=== PATIENT | female | born 1935 | race Caucasian/White ===

== ENCOUNTER → 2017-10-19 | Outpatient (CLI) | payer MEDICARE ==
[2016-06-12 13:52] VITALS: BP 124/87
[~2017-10-19] MED LIST: COUMADIN5 MG; COZAAR25 MG PO; GOOD NEIGHBOR325 MG PO; HYDROCHLOROTHIA25 MG PO; LOTRISONE 0.05%1 CRE TP; PEPCID 20MG TAB20 MG; POTASSIUM CHLO10 ME2; TENORETIC 50 501 TAB
[2017-10-19 10:09] LABS: HEMATOCRIT 48.6 % (37.0-47.0); HEMOGLOBIN 16.2 g/dL (12.5-16.0); RED BLOOD COUNT 5.69 M/mm3 (4.10-5.30); RED CELL DISTRIBUTION WIDTH 13.7 % (11.5-14.5); WHITE BLOOD COUNT 5.4 K/mm3 (4.8-10.8)
[2017-10-19 10:26] LABS: ALBUMIN 4.5 g/dL (3.5-5.0); BUN/CREATININE RATIO 19.9 (6.0-26.0); CALCIUM 9.4 mg/dL (8.4-10.2); POTASSIUM 3.2 mmol/L (3.6-5.0); TOTAL BILIRUBIN 0.7 mg/dL (0.2-1.3); TOTAL PROTEIN 8.1 g/dL (6.3-8.2)
== END ==
LOC: LAB 09:55
PROVIDERS: Family Medicine
DX: I48.91 Unspecified atrial fibrillation (principal); R74.0 Nonspecific elevation of levels of transaminase and lactic acid dehydrogenase [LDH]

== ENCOUNTER 2017-10-24 13:06 | Emergency (ER) | payer MEDICARE ==
[~2017-10-24 13:06] MED LIST changes: +K-TAB20 MEQ PO; -POTASSIUM CHLO10 ME2
[2017-10-24] MEDS ORDERED: ELIQUIS2.5 MG PO (13:22)
[2017-10-24] MEDS ORDERED: ATENOLOL/CHLORT1 TA1 PO (13:22)
[2017-10-24 13:56] LABS: HEMATOCRIT 46.8 % (37.0-47.0); HEMOGLOBIN 15.5 g/dL (12.5-16.0); MEAN CELL VOLUME 86 fl (78-100); MEAN CORPUSCULAR HEMOGLOBIN 28 pg (27-31); MEAN CORPUSCULAR HGB CONC 33 g/dL (33-37); MEAN PLATELET VOLUME 10.1 fl (7.4-10.4); PLATELET COUNT 193 K/mm3 (130-400); RED BLOOD COUNT 5.46 M/mm3 (4.10-5.30); RED CELL DISTRIBUTION WIDTH 14.2 % (11.5-14.5)
[2017-10-24 14:10] LABS: ALBUMIN 3.5 g/dL (3.5-5.0); POTASSIUM 3.4 mmol/L (3.6-5.0); TOTAL BILIRUBIN 1.1 mg/dL (0.2-1.3); TOTAL PROTEIN 7.3 g/dL (6.3-8.2)
[2017-10-24 14:13] LABS: BAND 43 % (0-10); LYMPHOCYTE 5 % (20-51); MONOCYTE 14 % (3-10); NEUTROPHILS 38 % (42-75)
[2017-10-24 16:02] VITALS: BP 144/79
== END 2017-10-24 16:00 | disposition home or self-care (01) ==
LOC: ED 13:06
PROVIDERS: Family Medicine
DX: J18.9 Pneumonia, unspecified organism (principal); I48.91 Unspecified atrial fibrillation; Z79.01 Long term (current) use of anticoagulants; I10 Essential (primary) hypertension; Z91.14 Patient's other noncompliance with medication regimen
CPT/HCPCS: J7030

== ENCOUNTER 2017-10-29 10:27 | Inpatient (IN) | payer MEDICARE ==
[~2017-10-29] VITALS: Ht 162.6 cm; Wt 56.4 kg
[~2017-10-29 10:27] MED LIST changes: +ATENOLOL/CHLORT1 TA1 PO; +ELIQUIS2.5 MG PO
[2017-10-29 11:00] VITALS: BP 140/87
[2017-10-29 11:43] VITALS: BP 140/87
[2017-10-29 18:03] VITALS: BP 135/88
[2017-10-30 06:28] VITALS: BP 135/79
[2017-10-30 19:08] VITALS: BP 142/88
[2017-10-31 07:15] VITALS: BP 151/88
[2017-10-31 18:27] VITALS: BP 119/74
[2017-11-01 06:26] VITALS: BP 140/82
[2017-11-01 13:12] LABS: BUN/CREATININE RATIO 26.8 (6.0-26.0)
[2017-11-01] MEDS ORDERED: CEFDINIR300 MG PO (14:25)
[2017-11-01] MEDS ORDERED: ATENOLOL100 MG PO (14:26)
[2017-11-01] MEDS ORDERED: ZITHROMAX500 M2 PO (14:26)
[2017-11-01 15:04] VITALS: BP 144/82
== END 2017-11-01 16:15 | disposition home health service (06) | DRG 194 ==
LOC: MED/SURG 10:27
PROVIDERS: ADMIT Internal Medicine
DX: J18.9 Pneumonia, unspecified organism (principal); I47.1 Supraventricular tachycardia; I10 Essential (primary) hypertension; I48.91 Unspecified atrial fibrillation; E87.6 Hypokalemia

== ENCOUNTER → 2017-11-11 | Outpatient (CLI) | payer MEDICARE ==
[2017-11-01 15:04] VITALS: BP 144/82
[~2017-11-11] MED LIST changes: +ATENOLOL100 MG PO; +CEFDINIR300 MG PO; +ZITHROMAX500 M2 PO
[2017-11-11 12:08] LABS: HEMATOCRIT 42.4 % (37.0-47.0); HEMOGLOBIN 13.3 g/dL (12.5-16.0); MEAN CELL VOLUME 89 fl (78-100); MEAN CORPUSCULAR HEMOGLOBIN 28 pg (27-31); MEAN CORPUSCULAR HGB CONC 31 g/dL (33-37); MEAN PLATELET VOLUME 10.2 fl (7.4-10.4); PLATELET COUNT 227 K/mm3 (130-400); RED BLOOD COUNT 4.76 M/mm3 (4.10-5.30); RED CELL DISTRIBUTION WIDTH 14.4 % (11.5-14.5); WHITE BLOOD COUNT 4.7 K/mm3 (4.8-10.8)
[2017-11-11 12:19] LABS: ALBUMIN 3.5 g/dL (3.5-5.0); BUN/CREATININE RATIO 23.5 (6.0-26.0); POTASSIUM 4.3 mmol/L (3.6-5.0); TOTAL BILIRUBIN 0.3 mg/dL (0.2-1.3); TOTAL PROTEIN 7.1 g/dL (6.3-8.2)
[2017-11-11 12:25] LABS: BAND 1 % (0-10); LYMPHOCYTE 35 % (20-51); MONOCYTE 13 % (3-10); NEUTROPHILS 50 % (42-75)
== END ==
LOC: LAB 11:49
PROVIDERS: Internal Medicine
DX: J15.8 Pneumonia due to other specified bacteria (principal); I48.0 Paroxysmal atrial fibrillation; I10 Essential (primary) hypertension

== ENCOUNTER 2018-02-08 10:56 | Emergency (ER) | payer MEDICARE ==
[~2018-02-08] VITALS: Ht 162.6 cm; Wt 62.3 kg
[2018-02-08 11:41] LABS: HEMATOCRIT 44.8 % (37.0-47.0); HEMOGLOBIN 14.7 g/dL (12.5-16.0); MEAN CELL VOLUME 90 fl (78-100); MEAN CORPUSCULAR HEMOGLOBIN 29 pg (27-31); MEAN CORPUSCULAR HGB CONC 33 g/dL (33-37); MEAN PLATELET VOLUME 11.8 fl (7.4-10.4); PLATELET COUNT 144 K/mm3 (130-400); RED CELL DISTRIBUTION WIDTH 14.2 % (11.5-14.5)
[2018-02-08 11:50] LABS: PROTHROMBIN TIME 10.7 SECONDS (9.0-12.0)
[2018-02-08 11:55] LABS: ALBUMIN 3.8 g/dL (3.5-5.0); CALCIUM 9.2 mg/dL (8.4-10.2); POTASSIUM 3.9 mmol/L (3.6-5.0); TOTAL BILIRUBIN 0.2 mg/dL (0.2-1.3); TOTAL PROTEIN 7.1 g/dL (6.3-8.2)
[2018-02-08] MEDS ORDERED: ATENOLOL/CHLORT1 TA1 PO (12:11)
[2018-02-08 12:13] LABS: LYMPHOCYTE 21 % (20-51); MONOCYTE 15 % (3-10); NEUTROPHILS 47 % (42-75)
[2018-02-08 13:26] LABS: URINE APPEARANCE CLEAR; URINE BILIRUBIN NEGATIVE (NEGATIVE); URINE COLOR YELLOW; URINE GLUCOSE NEGATIVE (NEGATIVE); URINE KETONE NEGATIVE (NEGATIVE); URINE LEUKOCYTE ESTERASE NEGATIVE (NEGATIVE); URINE NITRATE NEGATIVE (NEGATIVE); URINE PROTEIN(semi-quant) NEGATIVE (NEGATIVE); URINE UROBILINOGEN NORMAL (NORMAL)
[2018-02-08 13:27] LABS: URINE BLOOD TRACE (NEGATIVE); URINE WBC 0-1 /hpf (0-3)
[2018-02-08] MEDS ORDERED: ATENOLOL25 MG PO (14:56)
[2018-02-08 15:23] VITALS: BP 138/84
== END 2018-02-08 15:15 | disposition home or self-care (01) ==
LOC: ED 10:56
PROVIDERS: Nurse Practitioner
DX: I95.1 Orthostatic hypotension (principal); R47.89 Other speech disturbances; I48.91 Unspecified atrial fibrillation; I10 Essential (primary) hypertension; Z79.01 Long term (current) use of anticoagulants; Z88.5 Allergy status to narcotic agent
CPT/HCPCS: J7030

== ENCOUNTER → 2018-06-24 | Outpatient (CLI) | payer MEDICARE ==
[~2018-06-24] MED LIST changes: +ATENOLOL25 MG PO
[2018-06-24 09:13] LABS: EOS # 0.2 (0.04-0.40); EOS % 3.6 % (1.0-5.0); HEMATOCRIT 44.9 % (37.0-47.0); LYMPH# 1.6 (1.50-4.00); MEAN CELL VOLUME 88 fl (78-100); MEAN CORPUSCULAR HEMOGLOBIN 29 pg (27-31); MEAN CORPUSCULAR HGB CONC 33 g/dL (33-37); MONO # 0.7 (0.20-0.80); NEU # 3.4 (1.40-6.50); PLATELET COUNT 188 K/mm3 (130-400); RED CELL DISTRIBUTION WIDTH 13.4 % (11.5-14.5); WHITE BLOOD COUNT 5.9 K/mm3 (4.8-10.8)
[2018-06-24 09:14] LABS: ALBUMIN 4.1 g/dL (3.5-5.0); CALCIUM 9.9 mg/dL (8.4-10.2); TOTAL BILIRUBIN 0.5 mg/dL (0.2-1.3); TOTAL PROTEIN 7.4 g/dL (6.3-8.2)
[2018-06-27 06:24] LABS: ERYTHROCYTE SEDIMENTATION RATE 6 mm/hr (0-30)
== END ==
LOC: LAB 08:42
PROVIDERS: Internal Medicine
DX: I48.91 Unspecified atrial fibrillation (principal); I10 Essential (primary) hypertension; K90.9 Intestinal malabsorption, unspecified

== ENCOUNTER 2018-07-17 11:35 | Emergency (ER) | payer MEDICARE ==
[2018-07-17 12:14] LABS: HEMATOCRIT 48.2 % (37.0-47.0); HEMOGLOBIN 16.2 g/dL (12.5-16.0); MEAN CELL VOLUME 87 fl (78-100); MEAN CORPUSCULAR HEMOGLOBIN 29 pg (27-31); MEAN CORPUSCULAR HGB CONC 34 g/dL (33-37); MEAN PLATELET VOLUME 11.4 fl (7.4-10.4); PLATELET COUNT 167 K/mm3 (130-400); RED BLOOD COUNT 5.54 M/mm3 (4.10-5.30); RED CELL DISTRIBUTION WIDTH 13.6 % (11.5-14.5); WHITE BLOOD COUNT 7.8 K/mm3 (4.8-10.8)
[2018-07-17 12:27] LABS: URINE APPEARANCE CLOUDY; URINE BILIRUBIN NEGATIVE (NEGATIVE); URINE BLOOD NEGATIVE (NEGATIVE); URINE COLOR YELLOW; URINE GLUCOSE NEGATIVE (NEGATIVE); URINE KETONE NEGATIVE (NEGATIVE); URINE LEUKOCYTE ESTERASE NEGATIVE (NEGATIVE); URINE NITRATE NEGATIVE (NEGATIVE); URINE PROTEIN(semi-quant) 1+ mg/dL (NEGATIVE); URINE UROBILINOGEN NORMAL (NORMAL)
[2018-07-17 12:28] LABS: URINE MUCUS PRESENT (NOT PRESENT); URINE WBC 0-1 /hpf (0-3)
[2018-07-17 12:30] LABS: PARTIAL THROMBOPLASTIN TIME 22.8 SECONDS (21.0-32.0); PROTHROMBIN TIME 10.6 SECONDS (9.0-12.0)
[2018-07-17 12:35] LABS: ALBUMIN 4.5 g/dL (3.5-5.0); CALCIUM 9.8 mg/dL (8.4-10.2); POTASSIUM 3.6 mmol/L (3.6-5.0); TOTAL BILIRUBIN 0.7 mg/dL (0.2-1.3); TOTAL PROTEIN 7.6 g/dL (6.3-8.2)
[2018-07-17 12:38] LABS: LYMPHOCYTE 13 % (20-51); MONOCYTE 6 % (3-10); NEUTROPHILS 81 % (42-75)
[2018-07-17] MEDS ORDERED: ATENOLOL/CHLORT1 TA1 PO (13:14)
[2018-07-17] MEDS ORDERED: ASPIRIN E.C. 8181 MG PO (13:15)
[2018-07-17 14:30] VITALS: BP 143/82
== END 2018-07-17 14:47 | disposition short-term general hospital (02) ==
LOC: ED 11:35
PROVIDERS: Nurse Practitioner
DX: G93.9 Disorder of brain, unspecified (principal); I16.0 Hypertensive urgency; I48.91 Unspecified atrial fibrillation; Z79.01 Long term (current) use of anticoagulants; Z79.899 Other long term (current) drug therapy; Z79.82 Long term (current) use of aspirin; R47.9 Unspecified speech disturbances; R26.0 Ataxic gait; R11.2 Nausea with vomiting, unspecified; R41.0 Disorientation, unspecified; R10.817 Generalized abdominal tenderness
CPT/HCPCS: J2405; J7030; J7050; Q9967

== ENCOUNTER 2018-12-10 13:30 | Emergency (ER) | payer MEDICARE ==
[~2018-12-10] VITALS: Ht 160 cm; Wt 60.9 kg
[~2018-12-10 13:30] MED LIST changes: +ASPIRIN E.C. 8181 MG PO
[2018-12-10 14:00] LABS: EOS % 0.3 % (1.0-5.0); HEMATOCRIT 44.2 % (37.0-47.0); HEMOGLOBIN 15.5 g/dL (12.5-16.0); LYMPH# 1.8 (1.50-4.00); MEAN CELL VOLUME 85 fl (78-100); MEAN CORPUSCULAR HEMOGLOBIN 30 pg (27-31); MEAN CORPUSCULAR HGB CONC 35 g/dL (33-37); MEAN PLATELET VOLUME 10.6 fl (7.4-10.4); MONO # 0.6 (0.20-0.80); NEU # 5.1 (1.40-6.50); PLATELET COUNT 183 K/mm3 (130-400); RED CELL DISTRIBUTION WIDTH 12.7 % (11.5-14.5); WHITE BLOOD COUNT 7.5 K/mm3 (4.8-10.8)
[2018-12-10 14:11] LABS: ALBUMIN 4.7 g/dL (3.5-5.0); CALCIUM 9.7 mg/dL (8.4-10.2); TOTAL BILIRUBIN 1.1 mg/dL (0.2-1.3)
[2018-12-10] MEDS ORDERED: TENORMIN25 MG PO (14:11)
[2018-12-10] MEDS ORDERED: COZAAR25 M1 PO (14:11)
[2018-12-10] MEDS ORDERED: FAMOTIDINE20 MG PO (14:12)
[2018-12-10] MEDS ORDERED: ATORVASTATIN CA20 MG PO (14:12)
[2018-12-10 14:18] LABS: CKMB ISOENZYME 1.3 ng/mL (0.6-3.5)
[2018-12-10 14:29] LABS: TROPONIN-I < 0.03 ng/mL (0.00-0.06)
[2018-12-10 14:35] LABS: POTASSIUM 2.9 mmol/L (3.6-5.0)
[2018-12-10 14:43] LABS: PARTIAL THROMBOPLASTIN TIME 20.8 SECONDS (21.0-32.0); PROTHROMBIN TIME 10.5 SECONDS (9.0-12.0)
[2018-12-10 15:25] LABS: URINE APPEARANCE HAZY; URINE COLOR YELLOW; URINE GLUCOSE NEGATIVE (NEGATIVE); URINE KETONE 1+ (NEGATIVE); URINE PROTEIN(semi-quant) TRACE mg/dL (NEGATIVE)
[2018-12-10 15:26] LABS: URINE BILIRUBIN NEGATIVE (NEGATIVE); URINE BLOOD NEGATIVE (NEGATIVE); URINE LEUKOCYTE ESTERASE NEGATIVE (NEGATIVE); URINE NITRATE NEGATIVE (NEGATIVE); URINE UROBILINOGEN NORMAL (NORMAL); URINE WBC 0-1 /hpf (0-3)
[2018-12-10 16:33] VITALS: BP 115/56
== END 2018-12-10 16:33 | disposition short-term general hospital (02) ==
LOC: ED 13:30
PROVIDERS: Family Medicine
DX: I61.9 Nontraumatic intracerebral hemorrhage, unspecified (principal); I48.0 Paroxysmal atrial fibrillation; I10 Essential (primary) hypertension; I47.1 Supraventricular tachycardia; R74.0 Nonspecific elevation of levels of transaminase and lactic acid dehydrogenase [LDH]; K21.9 Gastro-esophageal reflux disease without esophagitis; F17.210 Nicotine dependence, cigarettes, uncomplicated; Z91.19 Patient's noncompliance with other medical treatment and regimen; Z79.01 Long term (current) use of anticoagulants; Z79.82 Long term (current) use of aspirin; Z88.5 Allergy status to narcotic agent; Z86.73 Personal history of transient ischemic attack (TIA), and cerebral infarction without residual deficits
CPT/HCPCS: J7030; J7050

== ENCOUNTER → 2019-02-13 | Outpatient (CLI) | payer MEDICARE ==
[~2019-02-13] MED LIST changes: +ATORVASTATIN CA20 MG PO; +COZAAR25 M1 PO; +FAMOTIDINE20 MG PO; +TENORMIN25 MG PO
== END ==
LOC: RAD 09:49
DX: I67.82 Cerebral ischemia (principal); I61.9 Nontraumatic intracerebral hemorrhage, unspecified; I10 Essential (primary) hypertension; I48.91 Unspecified atrial fibrillation

== ENCOUNTER 2019-03-08 10:02 | Emergency (ER) | payer MEDICARE ==
[~2019-03-08] VITALS: Wt 60.5 kg
[~2019-03-08 10:02] MED LIST changes: +COZAAR100 MG PO; -COZAAR25 M1 PO
[2019-03-08 10:33] LABS: EOS % 0.5 % (1.0-5.0); HEMATOCRIT 39.3 % (37.0-47.0); HEMOGLOBIN 12.6 g/dL (12.5-16.0); MEAN CELL VOLUME 92 fl (78-100); MEAN CORPUSCULAR HEMOGLOBIN 29 pg (27-31); MEAN CORPUSCULAR HGB CONC 32 g/dL (33-37); MONO # 0.6 (0.20-0.80); PLATELET COUNT 170 K/mm3 (130-400); RED BLOOD COUNT 4.29 M/mm3 (4.10-5.30); WHITE BLOOD COUNT 5.6 K/mm3 (4.8-10.8)
[2019-03-08 10:44] LABS: PROTHROMBIN TIME 10.4 SECONDS (9.0-12.0)
[2019-03-08 10:52] LABS: ALBUMIN 3.5 g/dL (3.4-4.8); ALT/SGPT 13 U/L (0-55); AST-SGOT 14 U/L (5-34); CARBON DIOXIDE 25 mmol/L (23-31); GLUCOSE 115 mg/dL (65-105); POTASSIUM 4.2 mmol/L (3.5-5.1); SODIUM 139 mmol/L (136-145); TOTAL BILIRUBIN 0.6 mg/dL (0.2-1.2); TOTAL PROTEIN 6.1 g/dL (6.2-8.1)
[2019-03-08 10:55] LABS: PARTIAL THROMBOPLASTIN TIME 21.3 SECONDS (21.0-32.0)
[2019-03-08 11:02] LABS: TROPONIN-I < 0.03 ng/mL (<0.030)
[2019-03-08] MEDS ORDERED: ASPERCREME1 EACH TP (11:03)
[2019-03-08] MEDS ORDERED: PAIN RELIEVER500 M2 PO (11:05)
[2019-03-08] MEDS ORDERED: ANUSOL HC CREAM30 GM TOP (11:06)
[2019-03-08] MEDS ORDERED: PANTOPRAZOLE SO40 MG PO (11:11)
[2019-03-08] MEDS ORDERED: MICONAZOLE NITR30 GM TOP (11:11)
[2019-03-08] MEDS ORDERED: GAS RELIEF80 MG PO (11:12)
[2019-03-08] MEDS ORDERED: CALCIUM500 M1 PO (11:12)
[2019-03-08] MEDS ORDERED: AMLODIPINE BESYL5 MG PO (11:13)
[2019-03-08 11:57] LABS: PH-URINE 6.5 (5.0 - 8.0); URINE APPEARANCE HAZY; URINE BILIRUBIN NEGATIVE (NEGATIVE); URINE BLOOD NEGATIVE (NEGATIVE); URINE COLOR YELLOW; URINE GLUCOSE NEGATIVE (NEGATIVE); URINE KETONE NEGATIVE (NEGATIVE); URINE LEUKOCYTE ESTERASE TRACE (NEGATIVE); URINE NITRATE NEGATIVE (NEGATIVE); URINE PROTEIN(semi-quant) NEGATIVE (NEGATIVE); URINE UROBILINOGEN NORMAL (NORMAL); URINE WBC 0-1 /hpf (0-3)
[2019-03-08 13:36] VITALS: BP 132/76
== END 2019-03-08 13:43 | disposition short-term general hospital (02) ==
LOC: ED 10:02
PROVIDERS: Physician Assistant
DX: G45.9 Transient cerebral ischemic attack, unspecified (principal); I48.0 Paroxysmal atrial fibrillation; I10 Essential (primary) hypertension; K21.9 Gastro-esophageal reflux disease without esophagitis
CPT/HCPCS: J3490; J7030

== ENCOUNTER → 2019-04-10 | Outpatient (CLI) | payer MEDICARE ==
[2019-03-29 06:04] VITALS: BP 147/88
[~2019-04-10] MED LIST changes: +AMLODIPINE BES2.5 MG PO; +AMLODIPINE BESYL5 MG PO; +ANUSOL HC CREAM30 GM TOP; +ASPERCREME1 EACH TP; +ASPIRIN ADULT L81 M3 PO; +CALCIUM500 M1 PO; +CARVEDILOL3.125 MG PO; +CARVEDILOL6.25 MG PO; +DIGOXIN125 MCG PO; +DOCUSATE SOD100 MG PO; +GAS RELIEF80 MG PO; +HEALTHYLAX17 GM/Dose PO; +LEVETIRACETAM500 M2 PO; +MICONAZOLE NITR30 GM TOP; +PAIN RELIEVER500 M2 PO; +PANTOPRAZOLE SO40 MG PO; +TUMS REGULAR S500 MG PO; +TYLENOL325 M1 PO
[2019-04-10 13:52] LABS: HEMATOCRIT 39.4 % (37.0-47.0); HEMOGLOBIN 12.7 g/dL (12.5-16.0); LYMPH# 1.3 (1.50-4.00); MEAN CELL VOLUME 92 fl (78-100); MEAN CORPUSCULAR HEMOGLOBIN 30 pg (27-31); MEAN CORPUSCULAR HGB CONC 32 g/dL (33-37); MEAN PLATELET VOLUME 11.1 fl (7.4-10.4); MONO # 0.4 (0.20-0.80); NEU # 2.4 (1.40-6.50); PLATELET COUNT 155 K/mm3 (130-400); RED BLOOD COUNT 4.29 M/mm3 (4.10-5.30); RED CELL DISTRIBUTION WIDTH 13.6 % (11.5-14.5); WHITE BLOOD COUNT 4.2 K/mm3 (4.8-10.8)
[2019-04-10 14:10] LABS: ALBUMIN 3.7 g/dL (3.4-4.8)
[2019-04-10 14:11] LABS: POTASSIUM 3.7 mmol/L (3.5-5.1)
[2019-04-10 14:12] LABS: CALCIUM 9.6 mg/dL (8.3-10.5)
[2019-04-10 14:13] LABS: TOTAL PROTEIN 6.5 g/dL (6.2-8.1)
[2019-04-10 14:15] LABS: TOTAL BILIRUBIN 0.5 mg/dL (0.2-1.2)
[2019-04-10 15:01] LABS: ERYTHROCYTE SEDIMENTATION RATE 9 mm/hr (0-30)
== END ==
LOC: LAB 13:32
PROVIDERS: Internal Medicine
DX: I10 Essential (primary) hypertension (principal); K90.9 Intestinal malabsorption, unspecified; I48.91 Unspecified atrial fibrillation

== ENCOUNTER 2019-07-12 09:31 | Emergency (ER) | payer MEDICARE ==
[~2019-07-12] VITALS: Wt 57.5 kg
[2019-07-12 10:07] LABS: EOS # 0.1 (0.04-0.40); EOS % 2.2 % (1.0-5.0); HEMATOCRIT 41.7 % (37.0-47.0); HEMOGLOBIN 13.7 g/dL (12.5-16.0); LYMPH# 1.4 (1.50-4.00); MEAN CELL VOLUME 88 fl (78-100); MEAN CORPUSCULAR HEMOGLOBIN 29 pg (27-31); MEAN CORPUSCULAR HGB CONC 33 g/dL (33-37); MEAN PLATELET VOLUME 11.2 fl (7.4-10.4); MONO # 0.4 (0.20-0.80); NEU # 3.4 (1.40-6.50); PLATELET COUNT 180 K/mm3 (130-400); RED BLOOD COUNT 4.76 M/mm3 (4.10-5.30); RED CELL DISTRIBUTION WIDTH 13.7 % (11.5-14.5); WHITE BLOOD COUNT 5.4 K/mm3 (4.8-10.8)
[2019-07-12 10:16] LABS: ALBUMIN 4.1 g/dL (3.4-4.8); SODIUM 140 mmol/L (136-145)
[2019-07-12 10:18] LABS: CALCIUM 9.8 mg/dL (8.3-10.5); PROTHROMBIN TIME 10.4 SECONDS (9.0-12.0)
[2019-07-12 10:19] LABS: GLUCOSE 101 mg/dL (65-105); TOTAL PROTEIN 7.2 g/dL (6.2-8.1)
[2019-07-12 10:20] LABS: CARBON DIOXIDE 27 mmol/L (23-31)
[2019-07-12 10:21] LABS: TOTAL BILIRUBIN 0.5 mg/dL (0.2-1.2)
[2019-07-12 10:24] LABS: AST-SGOT 14 U/L (5-34)
[2019-07-12 10:25] LABS: ALT/SGPT 20 U/L (0-55)
[2019-07-12 10:31] LABS: TROPONIN-I < 0.03 ng/mL (<0.030)
[2019-07-12 10:55] LABS: URINE APPEARANCE CLEAR; URINE BILIRUBIN NEGATIVE (NEGATIVE); URINE BLOOD TRACE (NEGATIVE); URINE COLOR YELLOW; URINE GLUCOSE NEGATIVE (NEGATIVE); URINE KETONE NEGATIVE (NEGATIVE); URINE LEUKOCYTE ESTERASE NEGATIVE (NEGATIVE); URINE NITRATE NEGATIVE (NEGATIVE); URINE PROTEIN(semi-quant) NEGATIVE (NEGATIVE); URINE UROBILINOGEN NORMAL (NORMAL)
[2019-07-12] MEDS ORDERED: PANTOPRAZOLE SO40 MG PO (11:07)
[2019-07-12] MEDS ORDERED: CARVEDILOL6.25 MG PO (11:09)
[2019-07-12 14:01] VITALS: BP 150/79
== END 2019-07-12 14:01 | disposition home or self-care (01) ==
LOC: ED 09:31
PROVIDERS: Physician Assistant
DX: S92.511A Displaced fracture of proximal phalanx of right lesser toe(s), initial encounter for closed fracture (principal); I10 Essential (primary) hypertension; I48.91 Unspecified atrial fibrillation; K21.9 Gastro-esophageal reflux disease without esophagitis; I47.1 Supraventricular tachycardia; Z86.73 Personal history of transient ischemic attack (TIA), and cerebral infarction without residual deficits; Z79.82 Long term (current) use of aspirin; W19.XXXA Unspecified fall, initial encounter
CPT/HCPCS: J3010

== ENCOUNTER → 2019-12-15 | Outpatient (CLI) | payer MEDICARE ==
[2019-12-15 10:04] LABS: EOS # 0.1 (0.04-0.40); EOS % 1.7 % (1.0-5.0); HEMATOCRIT 43.3 % (37.0-47.0); HEMOGLOBIN 13.9 g/dL (12.5-16.0); LYMPH# 1.5 (1.50-4.00); MEAN CELL VOLUME 90 fl (78-100); MEAN CORPUSCULAR HEMOGLOBIN 29 pg (27-31); MEAN CORPUSCULAR HGB CONC 32 g/dL (33-37); MONO # 0.6 (0.20-0.80); NEU # 4.6 (1.40-6.50); PLATELET COUNT 157 K/mm3 (130-400); RED BLOOD COUNT 4.81 M/mm3 (4.10-5.30); RED CELL DISTRIBUTION WIDTH 13.6 % (11.5-14.5); WHITE BLOOD COUNT 6.9 K/mm3 (4.8-10.8)
[2019-12-15 10:08] LABS: ALBUMIN 4.1 g/dL (3.4-4.8); POTASSIUM 4.4 mmol/L (3.5-5.1)
[2019-12-15 10:10] LABS: CALCIUM 9.7 mg/dL (8.3-10.5)
[2019-12-15 10:13] LABS: TOTAL BILIRUBIN 0.7 mg/dL (0.2-1.2)
[2019-12-15 10:17] LABS: DIGOXIN 0.6 ng/mL (0.8-2.0)
== END ==
LOC: LAB 09:31
PROVIDERS: Internal Medicine
DX: I48.91 Unspecified atrial fibrillation (principal); I10 Essential (primary) hypertension

== ENCOUNTER → 2020-08-08 | Outpatient (CLI) | payer MEDICARE | LOC: AMSURD 10:34 | DX: I48.0 Paroxysmal atrial fibrillation (principal) ==

== ENCOUNTER → 2021-02-07 | Outpatient (CLI) | payer MEDICARE ==
[2021-02-07 09:33] LABS: BASO # 0.02 (0.02-0.10); EOS # 0.06 (0.04-0.40); EOS % 1.1 % (1.0-5.0); HEMATOCRIT 47.5 % (37.0-47.0); HEMOGLOBIN 15.1 g/dL (12.5-16.0); LYMPH# 1.36 (1.50-4.00); MEAN CELL VOLUME 87 fl (78-100); MEAN CORPUSCULAR HEMOGLOBIN 28 pg (27-31); MEAN CORPUSCULAR HGB CONC 32 g/dL (33-37); MEAN PLATELET VOLUME 10.2 fl (7.4-10.4); MONO # 0.46 (0.20-0.80); NEU # 3.38 (1.40-6.50); PLATELET COUNT 150 K/mm3 (130-400); RED BLOOD COUNT 5.45 M/mm3 (4.10-5.30); RED CELL DISTRIBUTION WIDTH 14.6 % (11.5-14.5); WHITE BLOOD COUNT 5.3 K/mm3 (4.8-10.8)
[2021-02-07 09:48] LABS: POTASSIUM 4.7 mmol/L (3.5-5.1)
[2021-02-07 09:49] LABS: ALBUMIN 4.2 g/dL (3.4-4.8); CALCIUM 9.8 mg/dL (8.3-10.5)
[2021-02-07 09:57] LABS: DIGOXIN 1.7 ng/mL (0.8-2.0)
== END ==
LOC: LAB 09:19
PROVIDERS: Internal Medicine
DX: I48.91 Unspecified atrial fibrillation (principal); I63.9 Cerebral infarction, unspecified; K90.9 Intestinal malabsorption, unspecified

== ENCOUNTER → 2021-08-11 | Outpatient (CLI) | payer MEDICARE ==
[2021-08-11 09:58] LABS: BASO # 0.02 K/mm3 (0.02-0.10); EOS # 0.05 K/mm3 (0.04-0.40); EOS % 0.8 % (1.0-5.0); HEMATOCRIT 43.5 % (37.0-47.0); HEMOGLOBIN 13.8 g/dL (12.5-16.0); LYMPH# 1.07 K/mm3 (1.50-4.00); MEAN CELL VOLUME 90 fl (78-100); MEAN CORPUSCULAR HEMOGLOBIN 29 pg (27-31); MEAN CORPUSCULAR HGB CONC 32 g/dL (33-37); MEAN PLATELET VOLUME 11.3 fl (7.4-10.4); MONO # 0.77 K/mm3 (0.20-0.80); NEU # 4.31 K/mm3 (1.40-6.50); PLATELET COUNT 158 K/mm3 (130-400); RED BLOOD COUNT 4.83 M/mm3 (4.10-5.30); RED CELL DISTRIBUTION WIDTH 14.9 % (11.5-14.5); WHITE BLOOD COUNT 6.2 K/mm3 (4.8-10.8)
[2021-08-11 10:17] LABS: ALBUMIN 3.8 g/dL (3.4-4.8)
[2021-08-11 10:18] LABS: CALCIUM 10.1 mg/dL (8.3-10.5)
[2021-08-11 10:21] LABS: TOTAL BILIRUBIN 1.1 mg/dL (0.2-1.2)
[2021-08-11 10:25] LABS: DIGOXIN 0.7 ng/mL (0.8-2.0)
== END ==
LOC: LAB 08:50
PROVIDERS: Internal Medicine
DX: I63.9 Cerebral infarction, unspecified (principal); K90.9 Intestinal malabsorption, unspecified; I48.91 Unspecified atrial fibrillation

== ENCOUNTER 2021-10-01 13:42 | Emergency (ER) | payer MEDICARE ==
[2021-10-01 14:26] LABS: BASO # 0.02 K/mm3 (0.02-0.10); EOS # 0.02 K/mm3 (0.04-0.40); EOS % 0.5 % (1.0-5.0); HEMATOCRIT 46.4 % (37.0-47.0); MEAN CELL VOLUME 88 fl (78-100); MEAN CORPUSCULAR HEMOGLOBIN 29 pg (27-31); MEAN CORPUSCULAR HGB CONC 32 g/dL (33-37); MEAN PLATELET VOLUME 11.4 fl (7.4-10.4); MONO # 0.41 K/mm3 (0.20-0.80); NEU # 2.53 K/mm3 (1.40-6.50); PLATELET COUNT 112 K/mm3 (130-400); RED BLOOD COUNT 5.27 M/mm3 (4.10-5.30); RED CELL DISTRIBUTION WIDTH 15.1 % (11.5-14.5); WHITE BLOOD COUNT 4.4 K/mm3 (4.8-10.8)
[2021-10-01 14:39] LABS: ALBUMIN 3.8 g/dL (3.4-4.8)
[2021-10-01 14:40] LABS: POTASSIUM 3.9 mmol/L (3.5-5.1)
[2021-10-01 14:41] LABS: CALCIUM 10.1 mg/dL (8.3-10.5)
[2021-10-01 14:44] LABS: TOTAL BILIRUBIN 0.8 mg/dL (0.2-1.2)
[2021-10-01 16:10] LABS: URINE APPEARANCE HAZY; URINE BILIRUBIN NEGATIVE (NEGATIVE); URINE BLOOD NEGATIVE (NEGATIVE); URINE COLOR YELLOW; URINE GLUCOSE NEGATIVE (NEGATIVE); URINE KETONE NEGATIVE (NEGATIVE); URINE LEUKOCYTE ESTERASE 1+ (NEGATIVE); URINE NITRATE NEGATIVE (NEGATIVE); URINE PROTEIN(semi-quant) TRACE (NEGATIVE); URINE UROBILINOGEN NORMAL (NORMAL)
[2021-10-01 16:11] LABS: URINE MUCUS PRESENT (NOT PRESENT)
[2021-10-01] MEDS ORDERED: CEFDINIR300 MG PO (17:05)
[2021-10-01 18:00] VITALS: BP 132/89
== END 2021-10-01 18:00 | disposition home or self-care (01) ==
LOC: ED 13:42
PROVIDERS: Physician Assistant
DX: U07.1 COVID-19 (principal); N39.0 Urinary tract infection, site not specified; I48.91 Unspecified atrial fibrillation; I10 Essential (primary) hypertension; Z86.73 Personal history of transient ischemic attack (TIA), and cerebral infarction without residual deficits; Z79.82 Long term (current) use of aspirin; Z79.899 Other long term (current) drug therapy
CPT/HCPCS: J0696

== ENCOUNTER → 2022-01-02 | Outpatient (CLI) | payer MEDICARE ==
[2022-01-02 11:03] LABS: POTASSIUM 4.4 mmol/L (3.5-5.1)
[2022-01-02 11:04] LABS: CALCIUM 9.8 mg/dL (8.3-10.5)
== END ==
LOC: AMSURD 10:03 → LAB 10:03
PROVIDERS: Internal Medicine Cardiovascular Disease
DX: I48.0 Paroxysmal atrial fibrillation (principal); Z79.899 Other long term (current) drug therapy

== ENCOUNTER 2022-01-10 10:14 | Emergency (ER) | payer MEDICARE ==
[~2022-01-10] VITALS: Ht 162.6 cm; Wt 52.3 kg
[2022-01-10] MEDS ORDERED: DIGOX0.125 MG PO (10:47)
[2022-01-10 11:06] LABS: BASO # 0.02 K/mm3 (0.02-0.10); EOS # 0.04 K/mm3 (0.04-0.40); EOS % 0.6 % (1.0-5.0); HEMATOCRIT 44.7 % (37.0-47.0); HEMOGLOBIN 14.7 g/dL (12.5-16.0); LYMPH# 0.96 K/mm3 (1.50-4.00); MEAN CELL VOLUME 89 fl (78-100); MEAN CORPUSCULAR HEMOGLOBIN 29 pg (27-31); MEAN CORPUSCULAR HGB CONC 33 g/dL (33-37); MONO # 0.44 K/mm3 (0.20-0.80); NEU # 5.57 K/mm3 (1.40-6.50); PLATELET COUNT 144 K/mm3 (130-400); RED CELL DISTRIBUTION WIDTH 13.9 % (11.5-14.5); WHITE BLOOD COUNT 7.1 K/mm3 (4.8-10.8)
[2022-01-10 11:08] LABS: ALBUMIN 4.3 g/dL (3.4-4.8)
[2022-01-10 11:09] LABS: POTASSIUM 3.5 mmol/L (3.5-5.1)
[2022-01-10 11:10] LABS: CALCIUM 9.8 mg/dL (8.3-10.5)
[2022-01-10 11:11] LABS: TOTAL PROTEIN 6.9 g/dL (6.2-8.1)
[2022-01-10 11:13] LABS: TOTAL BILIRUBIN 1.2 mg/dL (0.2-1.2)
[2022-01-10 11:15] LABS: URINE APPEARANCE CLEAR; URINE COLOR LT YELLOW
[2022-01-10 11:16] LABS: URINE BILIRUBIN NEGATIVE (NEGATIVE); URINE BLOOD TRACE (NEGATIVE); URINE GLUCOSE NEGATIVE (NEGATIVE); URINE KETONE NEGATIVE (NEGATIVE); URINE LEUKOCYTE ESTERASE NEGATIVE (NEGATIVE); URINE NITRATE NEGATIVE (NEGATIVE); URINE PROTEIN(semi-quant) NEGATIVE (NEGATIVE); URINE UROBILINOGEN NORMAL (NORMAL); URINE WBC 0-1 /hpf (0-3)
[2022-01-10 14:01] VITALS: BP 130/96
== END 2022-01-10 13:45 | disposition short-term general hospital (02) ==
LOC: ED 10:14
PROVIDERS: Family Medicine
DX: R41.82 Altered mental status, unspecified (principal); I48.20 Chronic atrial fibrillation, unspecified; I67.4 Hypertensive encephalopathy; Z87.820 Personal history of traumatic brain injury; Z88.8 Allergy status to other drugs, medicaments and biological substances; Z20.822 Contact with and (suspected) exposure to COVID-19
CPT/HCPCS: J3010; J7050

== ENCOUNTER → 2022-06-23 | Outpatient (CLI) | payer MEDICARE ==
[~2022-06-23] MED LIST changes: +DIGOX0.125 MG PO
[2022-06-23 11:45] LABS: HEMATOCRIT 44.7 % (37.0-47.0); HEMOGLOBIN 14.5 g/dL (12.5-16.0); MEAN PLATELET VOLUME 10.7 fl (7.4-10.4); RED BLOOD COUNT 4.93 M/mm3 (4.10-5.30); RED CELL DISTRIBUTION WIDTH 14.4 % (11.5-14.5); WHITE BLOOD COUNT 4.4 K/mm3 (4.8-10.8)
[2022-06-23 11:50] LABS: ALBUMIN 4.1 g/dL (3.4-4.8)
[2022-06-23 11:51] LABS: POTASSIUM 4.5 mmol/L (3.5-5.1)
[2022-06-23 11:52] LABS: CALCIUM 9.6 mg/dL (8.3-10.5)
[2022-06-23 11:53] LABS: TOTAL PROTEIN 6.9 g/dL (6.2-8.1)
[2022-06-23 11:55] LABS: TOTAL BILIRUBIN 0.9 mg/dL (0.2-1.2)
[2022-06-23 19:47] LABS: DIGOXIN 0.9 ng/mL (0.8-2.0)
== END ==
LOC: LAB 11:20
PROVIDERS: Internal Medicine Cardiovascular Disease
DX: Z79.899 Other long term (current) drug therapy (principal)

== ENCOUNTER 2024-12-19 13:52 | Emergency (ER) | payer MEDICARE ==
[~2024-12-19] VITALS: Ht 160 cm; Wt 50.5 kg
[2024-12-19] MEDS ORDERED: Ondansetron 4 MG/2 ML VIAL IV ONE (14:30)
[2024-12-19] MEDS ORDERED: NS 1,000 ML IV SCH (14:30)
[2024-12-19 14:47] LABS: HEMATOCRIT 45.1 % (37.0-47.0); HEMOGLOBIN 14.8 g/dL (12.5-16.0); MEAN CELL VOLUME 87 fl (78-100); MEAN CORPUSCULAR HEMOGLOBIN 29 pg (27-31); MEAN CORPUSCULAR HGB CONC 33 g/dL (33-37); MEAN PLATELET VOLUME 11.2 fl (7.4-10.4); PLATELET COUNT 133 K/mm3 (130-400); RED BLOOD COUNT 5.17 M/mm3 (4.10-5.30); RED CELL DISTRIBUTION WIDTH 14.2 % (11.5-14.5)
[2024-12-19 14:52] LABS: ALBUMIN 3.8 g/dL (3.4-4.8)
[2024-12-19 14:54] LABS: CALCIUM 9.3 mg/dL (8.3-10.5)
[2024-12-19 14:55] LABS: TOTAL PROTEIN 6.8 g/dL (6.2-8.1)
[2024-12-19 14:57] LABS: TOTAL BILIRUBIN 1.3 mg/dL (0.2-1.2)
[2024-12-19 15:12] LABS: BAND 8 % (0-10); LYMPHOCYTE 6 % (20-51); MONOCYTE 7 % (3-10); NEUTROPHILS 79 % (42-75)
[2024-12-19] MEDS ORDERED: REGLAN10 M2 PO (16:06)
[2024-12-19 16:38] VITALS: BP 155/89
== END 2024-12-19 16:38 | disposition home or self-care (01) ==
LOC: ED 13:52
PROVIDERS: Physician Assistant
DX: E87.6 Hypokalemia (principal); Z86.73 Personal history of transient ischemic attack (TIA), and cerebral infarction without residual deficits; Z79.82 Long term (current) use of aspirin
CPT/HCPCS: J2405; J7030